=== PATIENT | male | born 1990 | race Caucasian/White ===

== ENCOUNTER 2017-09-01 22:52 | Emergency (ER) | payer SELFPAY ==
[~2017-09-01] VITALS: Ht 182.9 cm; Wt 116.0 kg
[~2017-09-01 22:52] MED LIST: ALLE24TA PO; HYDR-3533 PO; PENI500T PO; TRIA.025%T TOP
[2017-09-01 23:12] VITALS: BP 138/79; PULSE 105; RESP 16; TEMP 99.7; O2SAT 99
[2017-09-02 00:29] VITALS: BP 141/79; PULSE 100; RESP 18; O2SAT 99
--- NOTE | 2017-09-02 01:09 | PD ---
HPI Chief Complaint: GI Complaint Time Seen by Provider: 01:08 Travel History International Travel<30 days: No Contact w/Intl Traveler<30days: No Traveled to known affect area: No History of Present Illness HPI 27-year-old male came to the emergency room with history of cough, fever, generalized weakness for past 1 week. His is here was giving additional history and says that he has started to get better and started getting sick again since last Friday. Patient had a temperature of 99.9 in the triage. Rest of the vital signs are within acceptable limits. Patient says that he had asthma as a child. He does not have any inhalers at home. He is not a smoker. No known sick contacts. [facility] Past Medical History Narrative Medical List of his past medical, surgical, social and family history is reviewed from the nursing note. Autoimmune Disease: No Cardiovascular Problems: No Diminished Hearing: No Genitourinary: No Musculoskeletal: No Neurologic: No Psychiatric: No Respiratory: Yes (SMOKE INHALATION, HX CROUP AT 10 YEARS OLD) Immunizations Current: Yes Influenza Vaccination: No Past Surgical History Ear Surgery: Yes (HX TUBES IN EARS CHILD) Tympanostomy Tube: Yes Other Surgery: Yes Social History Alcohol Use: Yes (OCCASIONALLY) Tobacco Use: No Substance Use: No Allergies-Medications (Allergen,Severity, Reaction): Coded Allergies: No Known Allergies (Verified Adverse Reaction, Unknown, 09/01/17) Comments No known drug allergies. Reported Meds & Prescriptions Reported Meds & Active Scripts Active Zithromax Z-Norris (Azithromycin) 250 Mg Dspk 250 Mg PO DIRECTED 500 MG (2 tabs) day 1, then 1 tab days 2-5. Ventolin Hfa 18 GM Inh (Albuterol Sulfate) 90 Mcg/Act Aer 2 Puff INH Q4-6H PRN Narrative Medication List of his home medications reviewed from the nursing note. Review of Systems Except as stated in HPI: all other systems reviewed are Neg General / Constitutional: Positive: Fever Respiratory: Positive: Cough Musculoskeletal: Positive: Myalgias Physical Exam Narrative GENERAL: Awake, alert, moderate distress SKIN: Focused skin assessment warm/dry. HEAD: Atraumatic. Normocephalic. EYES: Pupils equal and round. No scleral icterus. No injection or drainage. ENT: No nasal bleeding or discharge. Mucous membranes pink and moist. NECK: Trachea midline. No JVD. CARDIOVASCULAR: Regular rate and rhythm. No murmur appreciated. RESPIRATORY: No accessory muscle use. Clear to auscultation. Breath sounds equal bilaterally. GASTROINTESTINAL: Abdomen soft, non-tender, nondistended. Hepatic and splenic margins not palpable. MUSCULOSKELETAL: No obvious deformities. No clubbing. No cyanosis. No edema. NEUROLOGICAL: Awake and alert. No obvious cranial nerve deficits. Motor grossly within normal limits. Normal speech. PSYCHIATRIC: Appropriate mood and affect; insight and judgment normal. Data Data Last Documented VS Vital Signs Date Time Temp Pulse Resp B/P (MAP) Pulse Ox O2 Delivery O2 Flow Rate FiO2 09/02/17 02:22 09/02/17 02:20 100 16 100 Room Air 09/01/17 23:12 99.7 Orders Orders Chest, Pa & Lat (09/02/17 01:12) Ecg Monitoring (09/02/17 01:12) Iv Access Insert/Monitor (09/02/17 01:12) Oximetry (09/02/17 01:12) Oxygen Administration (09/02/17 01:12) Albuterol Neb (Albuterol Neb) (09/02/17 01:15) Sodium Chloride 0.9% Flush (Ns Flush) (09/02/17 01:15) Influenzae A/B Antigen (09/02/17 01:12) Ed Discharge Order (09/02/17 02:17) [facility] Medical Decision Making Medical Screen Exam Complete: Yes Emergency Medical Condition: Yes Medical Record Reviewed: Yes Differential Diagnosis Influenza, viral illness, pneumonia, reactive airway disease Narrative Course 2:15 AM influenza test was negative. Patient was given 2 albuterol inhalers. I 've ordered for a chest x-ray. Awaiting for the report. I'll start him on a Z- Norris and give him a prescription for inhaler to go home with. Procedures EKG Prior to Arrival: No Diagnosis Primary Impression: Reactive airway disease Qualified Codes: J45.909 - Unspecified asthma, uncomplicated Additional Impressions: Viral illness Bronchitis Referrals: Primary Care Physician Additional Instructions: Use the inhaler 2 puffs every 4-6 hours still symptoms subside. Take the medication as per the prescription direction. ER if condition worsens or any other new concerns. Otherwise follow-up with her primary care. Med/Other Pt SpecificInfo: Prescription(s) given Scripts Azithromycin (Zithromax Z-Norris) 250 Mg Dspk 250 MG PO DIRECTED for Infection, #1 DSPK 0 Refills 500 MG (2 tabs) day 1, then 1 tab days 2-5. Prov: Paolo Valiente MD 09/02/17 Albuterol 18 GM Inh (Ventolin Hfa 18 GM Inh) 90 Mcg/Act Aer 2 PUFF INH Q4-6H Y for SHORTNESS OF BREATH, #1 INHALER 0 Refills Prov: Paolo Valiente MD 09/02/17 Disposition: 01 DISCHARGE HOME Condition: Stable Paolo Valiente MD Sep 02, 2017 01:09
[2017-09-02] MEDS ORDERED: SODIUM CHLORIDE 0.9% FLUSH 10 ML FLUSH IVF PRN (01:15)
[2017-09-02] MEDS: RESP: ALBUTEROL 2.5 MG/3 ML NEB (SCH) INH ×2 (01:19→01:20)
--- NOTE | 2017-09-02 02:15 | RADRPT ---
EXAM DATE/TIME: 09/02/2017 01:32 [place] COMPARISON: CHEST PA & LAT, May 11, 2013, 20:22. INDICATIONS : Cough and congestion. MEDICAL HISTORY : None. SURGICAL HISTORY : None. ENCOUNTER: Initial ACUITY: 2 weeks PAIN SCORE: 0/10 LOCATION: Bilateral chest FINDINGS: PA and lateral views of the chest demonstrate the lungs to be symmetrically aerated without evidence of mass, infiltrate or effusion. The cardiomediastinal contours are unremarkable. Osseous structure s are intact. CONCLUSION: Normal examination. Douglas Olivier MD on September 02, 2017 at 2:13 Board Certified Radiologist. This report was verified electronically.
[2017-09-02] MEDS ORDERED: VENTAER INH (02:17)
[2017-09-02] MEDS ORDERED: ZITHTAB PO (02:17)
[2017-09-02 02:20] VITALS: BP 134/65; PULSE 100; RESP 16; O2SAT 100
== END 2017-09-02 02:39 | disposition home or self-care (01) ==
LOC: PHED 22:52
DX: J45.909 Unspecified asthma, uncomplicated (principal); B34.9 Viral infection, unspecified; J40 Bronchitis, not specified as acute or chronic; R50.9 Fever, unspecified; R53.1 Weakness; M79.1 Myalgia
CPT/HCPCS: 71046; 87804; 94640; 94664; 99284; J7613